=== PATIENT | male | born 1975 | race Caucasian/White ===

== ENCOUNTER 2020-09-07 03:01 | Emergency (ER) | payer BC ==
[~2020-09-07] VITALS: Ht 177.8 cm; Wt 142.9 kg
== END 2020-09-07 03:24 | disposition home or self-care (01) ==
LOC: ER 03:18
DX: R05 Cough (principal); R06.00 Dyspnea, unspecified; G47.30 Sleep apnea, unspecified
CPT/HCPCS: 99282

== ENCOUNTER 2020-12-30 17:12 | Emergency (ER) | payer BC ==
[~2020-12-30] VITALS: Ht 177.8 cm; Wt 142.9 kg
[2020-12-30] MEDS ORDERED: BUPIVACAINE HCL 0.25% 10ML MPF VIAL INJ ONE (17:45)
[2020-12-30] MEDS ORDERED: TETANUS/DIPHTHERIA TOX ADULT 0.5 ML SYR IM ONE (17:45)
== END 2020-12-30 18:50 | disposition home or self-care (01) ==
LOC: ER 17:30
DX: S61.213A Laceration without foreign body of left middle finger without damage to nail, initial encounter (principal); S61.211A Laceration without foreign body of left index finger without damage to nail, initial encounter; W26.8XXA Contact with other sharp object(s), not elsewhere classified, initial encounter; Y92.008 Other place in unspecified non-institutional (private) residence as the place of occurrence of the external cause; G47.30 Sleep apnea, unspecified
CPT/HCPCS: 90714; 99284

== ENCOUNTER 2022-10-11 15:53 | Emergency (ER) | payer BC ==
[~2022-10-11] VITALS: Ht 177.8 cm; Wt 143.5 kg
[2022-10-11] MEDS ORDERED: CLONIDINE HCL 0.1 MG TAB PO ONE (17:30)
[2022-10-11] MEDS ORDERED: CLONIDINE HCL 0.1 MG TAB ONE (17:42)
== END 2022-10-11 17:42 | disposition home or self-care (01) ==
LOC: FSED 15:56
DX: R03.0 Elevated blood-pressure reading, without diagnosis of hypertension (principal); G47.30 Sleep apnea, unspecified; E66.01 Morbid (severe) obesity due to excess calories
CPT/HCPCS: 80053; 81003; 85025; 99284